=== PATIENT | male | born 1970 | race Caucasian/White ===

== ENCOUNTER 2018-07-26 08:09 | Emergency (ER) | payer MEDICAID ==
[2018-07-26] MEDS: SOD CHLORIDE 0.9% 1,000 ML IV ×2 (08:57→11:29)
[2018-07-26] MEDS: ONDANSETRON 4 MG INJ IV ×2 (08:57→10:07)
[2018-07-26] MEDS: morphine 4 MG/ML VIAL IV (08:57)
[2018-07-26 08:58] LABS: ADD MAN DIFF? NO
[2018-07-26 09:07] LABS: ABNORMAL IP MESSAGE 1; BASOPHILS % 0.2 % (0.0-2.0); EOSINOPHILS % 0.1 % (0.0-7.0); HEMOGLOBIN 14.1 g/dl (14.0-18.0); LYMPHOCYTES # 1.7 10^3/ul (0.8-2.9); LYMPHOCYTES % 8.4 % (15.0-51.0); MEAN CORPUSCULAR HEMOGLOBIN 30.9 pg (29.0-33.0); MEAN CORPUSCULAR HGB CONC 34.4 g/dl (32.0-37.0); MEAN CORPUSCULAR VOLUME 89.7 fl (82.0-101.0); MEAN PLATELET VOLUME 11.3 fl (7.4-10.4); MONOCYTE # 1.6 10^3/ul (0.3-0.9); MONOCYTES % 8.2 % (0.0-11.0); NEUTROPHIL # 16.5 10^3/ul (1.6-7.5); NEUTROPHILS % 82.2 % (39.0-77.0); PLATELET COUNT 178 10^3/UL (140-415); POSITIVE DIFF @See below; RED BLOOD COUNT 4.57 10^6/ul (4.70-6.10); RED CELL DISTRIBUTION WIDTH 12.9 % (11.5-14.5)
[2018-07-26 09:12] LABS: ADD UMIC YES; UR ASCORBIC ACID 40 mg/dL (NEGATIVE); UR BACTERIA FEW /HPF (NONE SEEN); UR BILIRUBIN (Dip) NEGATIVE (NEGATIVE); UR BLOOD (Dip) NEGATIVE (NEGATIVE); UR CLARITY CLEAR (CLEAR); UR COLOR AMBER (YELLOW); UR GLUCOSE (Dip) NEGATIVE (NEGATIVE); UR KETONES (Dip) 1+ mg/dL (NEGATIVE); UR LEUKOCYTE ESTERASE (Dip) 1+ Leu/ul (NEGATIVE); UR MUCUS FEW /HPF (NONE SEEN); UR NITRITE (Dip) NEGATIVE (NEGATIVE); UR RBC 3 /HPF (0-5); UR SPECIFIC GRAVITY (Dip) 1.021 (1.003-1.030); UR TOTAL PROTEIN (Dip) 1+ mg/dl (NEGATIVE); UR UROBILINOGEN (Dip) 2+ mg/dL (NEGATIVE); UR WBC 69 /HPF (0-5)
[2018-07-26 09:30] LABS: ALANINE AMINOTRANSFERASE 26 IU/L (13-69); ALBUMIN/GLOBULIN RATIO 1.02; ALKALINE PHOSPHATASE 59 IU/L (42-121); ANION GAP 14 (8-16); ASPARTATE AMINO TRANSFERASE 25 IU/L (15-46); BILIRUBIN,INDIRECT 0.8 mg/dl (0-1.1); BILIRUBIN,TOTAL 0.8 mg/dl (0.2-1.3); BLOOD UREA NITROGEN 13 mg/dl (7-20); CALCIUM 8.9 mg/dl (8.4-10.2); CARBON DIOXIDE 29 mmol/L (21-31); CHLORIDE 102 mmol/L (97-110); CREATININE 0.79 mg/dl (0.61-1.24); GLUCOSE 120 mg/dl (70-220); LIPASE 16 U/L (23-300); POTASSIUM 3.9 mmol/L (3.5-5.1); SODIUM 141 mmol/L (135-144); TOTAL PROTEIN 7.9 g/dl (6.1-8.1)
[2018-07-26] MEDS: HYDROmorphONE 2 MG/ML SYG IV (10:07)
[2018-07-26] MEDS: CEFTRIAXONE 1 GM/50 ML (PMX) 50 ML IVPB (10:07)
[2018-07-26] MEDS ORDERED: DIPHENHYDRAMINE 50 MG INJ IV (11:29)
[2018-07-26] MEDS: METOCLOPRAMIDE 10 MG INJ IV (11:39)
== END 2018-07-26 13:04 | disposition home or self-care (01) ==
LOC: FTE 08:09
DX: S09.90XA Unspecified injury of head, initial encounter (principal); R30.0 Dysuria; R11.2 Nausea with vomiting, unspecified; K57.30 Diverticulosis of large intestine without perforation or abscess without bleeding; R51 Headache; W20.8XXA Other cause of strike by thrown, projected or falling object, initial encounter; Y92.9 Unspecified place or not applicable
CPT/HCPCS: 36415; 70450; 74176; 80053; 81001; 83690; 85025; 87591; 96361; 96374; 96375; 96376; 99285-25

== ENCOUNTER 2019-06-24 08:32 | Emergency (ER) | payer MEDICAID ==
[2019-06-24] MEDS: METHYLPREDNISOLONE 125 MG INJ IM (09:26)
== END 2019-06-24 10:30 | disposition home or self-care (01) ==
LOC: FTE 08:32
DX: H66.002 Acute suppurative otitis media without spontaneous rupture of ear drum, left ear (principal); J32.0 Chronic maxillary sinusitis; R06.02 Shortness of breath
CPT/HCPCS: 71046; 93005; 96372; 99284-25